=== PATIENT | male | born 1960 | race Caucasian/White ===

== ENCOUNTER 2020-06-17 06:10 | Day surgery (SDC) | payer BC, SELFPAY ==
[~2020-06-17] VITALS: Ht 179.1 cm; Wt 93.9 kg
[2020-06-17] MEDS ORDERED: CEFAZOLIN SOD 1 GM in D5W 50 ML IV ONE (07:00)
[2020-06-17] MEDS ORDERED: LR 1,000 ML IV SCH (11:30)
[2020-06-17] MEDS ORDERED: HYDROmorphone 1 MG INJ. 1 MG/ML AMPUL IVP PRN ×2 (11:30)
[2020-06-17] MEDS ORDERED: METOCLOPRAMIDE HCL 10 MG/2 ML VIAL IVP PRN (11:30)
[2020-06-17] MEDS ORDERED: MEPERIDINE HCL/PF 25 MG/ML DISP.SYRIN IVP PRN (11:30)
[2020-06-17] MEDS ORDERED: MIDAZOLAM HCL 2 MG/2 ML VIAL (VERSED) IVP PRN (11:30)
[2020-06-17] MEDS ORDERED: LABETALOL 100 MG/ 20ML VIAL IVP PRN (11:30)
[2020-06-17] MEDS ORDERED: hydrALAZINE HCL 20 MG/ML VIAL IVP PRN (11:30)
[2020-06-17] MEDS ORDERED: ONDANSETRON HCL 4 MG/2 ML VIAL IVP PRN (11:30)
[2020-06-17 16:14] VITALS: BP_SYST 152
== END 2020-06-17 14:55 | disposition home or self-care (01) ==
LOC: SDS 06:10 → SMU 06:10 → EDSTATUS 08:45 → SDS 14:55
PROVIDERS: ATTEND Colon & Rectal Surgery
DX: C43.61 Malignant melanoma of right upper limb, including shoulder (principal); C43.59 Malignant melanoma of other part of trunk; I10 Essential (primary) hypertension
CPT/HCPCS: 11606 ×2; 12037; 38525; 78195; 88305; 88307; 88341; 88342; A9541; J0690; J7060; J7120; U0003